=== PATIENT | male | born 1990 | race African-American/Black ===

== ENCOUNTER 2020-11-12 11:37 | Outpatient (CLI) | payer MEDICAID | END 2020-11-12 23:59 | disposition home or self-care (01) | LOC: LAB 11:37 | PROVIDERS: ATTEND Specialist | DX: Z01.812 Encounter for preprocedural laboratory examination (principal); Z20.822 Contact with and (suspected) exposure to COVID-19 | CPT/HCPCS: 87426; C9803 ×2; U0003 ==

== ENCOUNTER 2020-11-15 05:27 | Day surgery (SDC) | payer MEDICAID ==
[2020-11-15] MEDS ORDERED: BACITRACIN 50000 UNITS/VIAL ONE (05:55)
[2020-11-15] MEDS ORDERED: ANESTHESIA TRAY IN PYXIS 1 EA TRAY MC ONE (05:55)
[2020-11-15] MEDS ORDERED: BUPIVACAINE 0.25% 75 MG/30 ML VIAL ONE (05:55)
[2020-11-15] MEDS ORDERED: SCOPOLAMINE PATCH 1 MG/72HR TD ONE (06:13)
[2020-11-15] MEDS ORDERED: FENTANYL PF 100MCG/2ML AMPUL ONE ×2 (06:13→08:38)
[2020-11-15] MEDS ORDERED: ACETAMINOPHEN 325 MG TABLET ONE ×2 (10:06)
== END 2020-11-15 10:50 | disposition home or self-care (01) ==
LOC: DS 05:27
PROVIDERS: ATTEND Specialist
DX: S83.512A Sprain of anterior cruciate ligament of left knee, initial encounter (principal); X58.XXXA Exposure to other specified factors, initial encounter; Y93.89 Activity, other specified; Y92.89 Other specified places as the place of occurrence of the external cause; Y99.8 Other external cause status; S83.282A Other tear of lateral meniscus, current injury, left knee, initial encounter; S83.242A Other tear of medial meniscus, current injury, left knee, initial encounter; M94.262 Chondromalacia, left knee; M65.862 Other synovitis and tenosynovitis, left lower leg
CPT/HCPCS: 29880; 29888; A4217; C1713 ×2; J0690; J1100; J1885; J2405; J2704; J3010 ×2; J3490 ×2; L1830